=== PATIENT | male | born 1975 | race African-American/Black ===

== ENCOUNTER 2019-08-24 18:27 | Emergency (ER) | payer MEDICAID ==
[~2019-08-24] VITALS: Ht 172.7 cm; Wt 85.0 kg
[2019-08-24] MEDS ORDERED: SODIUM CHLORIDE 0.9% 1,000 ML IV ONE (19:01)
[2019-08-24 19:24] LABS: EOSINOPHILS % 4.9 % (0.0-5.0); HEMATOCRIT. 37.9 % (42.0-52.0); LYMPHOCYTES % 13.9 % (20.0-50.0); MEAN CORPUSCULAR HEMOGLOBIN 30.7 pg (28.0-32.0); MEAN CORPUSCULAR VOLUME 89.8 fL (80.0-94.0); MEAN PLATELET VOLUME 7.7 fl (7.4-10.4); MONOCYTES % 6.5 % (2.0-8.0); NEUTROPHILS % 73.7 % (40.0-76.0); PLATELET 375 x1000/uL (130-400); RED BLOOD CELL COUNT 4.22 mill/uL (4.7-6.1); RED CELL DISTRIBUTION WIDTH 14.4 % (11.6-14.6)
[2019-08-24 19:34] LABS: CHLORIDE 108 mEq/L (98-107)
[2019-08-24 19:36] LABS: ETHANOL BLOOD 120 mg/dL
[2019-08-24 19:42] LABS: CREATINE KINASE 395 IU/L (39-308)
[2019-08-24 19:49] LABS: CLARITY URINE CLEAR (CLEAR); COLOR URINE YELLOW (YELLOW); KETONES URINE TRACE (NEGATIVE); LEUKOCYTE ESTERASE URINE NEGATIVE (NEGATIVE); NITRITE URINE NEGATIVE (NEGATIVE); OCCULT BLOOD URINE NEGATIVE (NEGATIVE); PH URINE 5.5 (4.5-8.0); PROTEIN URINE 2+ (NEGATIVE); SPECIFIC GRAVITY URINE 1.033 (1.005-1.030)
[2019-08-24 20:02] LABS: *AMPHETAMINES SCREEN URINE NEGATIVE (NEGATIVE); *BARBITURATES SCREEN URINE NEGATIVE (NEGATIVE); *BENZODIAZEPINES SCREEN URINE NEGATIVE (NEGATIVE); *COCAINE SCREEN URINE NEGATIVE (NEGATIVE); METHADONE URINE SCREEN NEGATIVE (NEGATIVE); OPIATES URINE SCREEN NEGATIVE (NEGATIVE)
[2019-08-24 20:03] LABS: CANNABINOID URINE SCREEN NEGATIVE (NEGATIVE); PHENCYCLIDINE URINE SCREEN PRESUMTIVE POSITIVE (NEGATIVE)
[2019-08-25] MEDS ORDERED: ACETAMINOPHEN 325MG TABLET PO ONE (01:45)
[2019-08-25 02:14] VITALS: BP 171/118
== END 2019-08-25 02:14 | disposition home or self-care (01) ==
LOC: ER 18:27 → EDBD 18:27 → ER 08-25 02:14
DX: T51.0X1A Toxic effect of ethanol, accidental (unintentional), initial encounter (principal); T40.991A Poisoning by other psychodysleptics [hallucinogens], accidental (unintentional), initial encounter; G92 Toxic encephalopathy; E87.8 Other disorders of electrolyte and fluid balance, not elsewhere classified; Y92.89 Other specified places as the place of occurrence of the external cause
CPT/HCPCS: 36415; 70450; 72125; 80053; 80305; 80307; 80320; 80329; 81003; 82550; 82962; 84443; 84484; 85025; 93005; 96360; 96361; 99285; J7030; G0480